=== PATIENT | male | born 1965 | race Caucasian/White ===

== ENCOUNTER 2017-07-17 10:26 | Emergency (ER) | payer MEDICAID, OTHER, SELFPAY ==
[2017-07-17] MEDS ORDERED: diphenhydrAMINE 50 MG/ML SDV ONE (10:31)
[2017-07-17] MEDS ORDERED: Haloperidol Lactate 5 MG/ML SDV ONE (10:32)
[2017-07-17] MEDS ORDERED: Sodium Chloride 0.9% 10 ML Syringe FLUSH PRN (10:40)
[2017-07-17] MEDS ORDERED: diphenhydrAMINE 50 MG/ML SDV IVPUSH ONE (10:41)
[2017-07-17] MEDS ORDERED: LORazepam 2 MG/ML Syringe IVPUSH ONE (10:41)
[2017-07-17] MEDS ORDERED: MVI, Adult with Vitamin K 10 ML, Folic Acid 1 MG, Thiamine 100 MG in Lactated Ringers 1... IV ONE ×4 (10:41)
[2017-07-17] MEDS ORDERED: Haloperidol Lactate 5 MG/ML SDV IVPUSH ONE (10:42)
[2017-07-17 11:27] LABS: ANION GAP 28.8; CHLORIDE,CL 97 mmol/L (101-111); SODIUM,NA 132 mmol/L (135-145)
--- NOTE | 2017-07-17 12:46 | EDM.PDOC ---
ED HPI GENERAL MEDICAL PROBLEM - General Chief Complaint: Drug or Alcohol Abuse Stated Complaint: IN BY [facility] Time Seen by Provider: 07/17/17 10:45 Source of Information: Reports: Patient, RN, RN Notes Reviewed History Limitations: Reports: No Limitations - History of Present Illness INITIAL COMMENTS - FREE TEXT/NARRATIVE: Patient presents to ER per [facility]. Upon arrival patient was seizing. Seizure lasted for approximately 30 seconds. EMS report the patient became combative in the ambulance. Ambulance pulled over and called for police help. Ambulance arrived with police accompanying . After seizure patient became very combative and uncooperative. Onset: Today Quality: Reports: Other (seizures) Severity: Moderate Improves with: Reports: None Worsens with: Reports: None Associated Symptoms: Reports: No Other Symptoms - Related Data Allergies Allergy/AdvReac Type Severity Reaction Status Date / Time No Known Allergies Allergy Verified 04/09/15 21:11 Home Meds: Home Meds Atenolol 100 mg PO DAILY 07/17/17 [History] Omeprazole [priLOSEC OTC] 20 mg PO DAILY 07/17/17 [History] Past Medical History - Past Health History Medical/Surgical History: Denies Medical/Surgical History HEENT History: Reports: Impaired Vision Psychiatric History: Reports: Addiction, Panic Attack Social & Family History - Tobacco Use Smoking Status *Q: Current Every Day Smoker Years of Tobacco use: 30 Packs/Tins Daily: 1.5 Used Tobacco, but Quit: No Second Hand Smoke Exposure: Yes - Caffeine Use Caffeine Use: Reports: Coffee, Soda, Tea - Alcohol Use Days Per Week of Alcohol Use: 7 Number of Drinks Per Day: 10 Total Drinks Per Week: 70 - Recreational Drug Use Recreational Drug Use: No ED ROS GENERAL - Review of Systems Review Of Systems: Unable To Obtain (EMS report seizure.) - Physical Exam Exam: See Below Exam Limited By: Other (seizure) Eye Exam: Bilateral Eye: Normal Inspection Ears: Normal External Exam, Normal Canal, Hearing Grossly Normal, Normal TMs Nose: Normal Inspection, Normal Mucosa, No Blood Throat/Mouth: Normal Inspection, Normal Lips, Normal Teeth, Normal Gums, Normal Oropharynx, Normal Voice, No Airway Compromise Head Exam: Atraumatic, Normocephalic Neck: Normal Inspection, Supple, Non-Tender, Full Range of Motion Cardiovascular: Regular Rate, Rhythm GI/Abdominal: Normal Bowel Sounds, Soft, Non-Tender, No Organomegaly, No Distention, No Abnormal Bruit, No Mass (Male) Exam: Deferred Rectal (Males) Exam: Deferred Neuro Exam (Abbreviated): Other (post ictal medicated--sedated.) Back Exam: Normal Inspection, Full Range of Motion, NT Extremities: Normal Inspection, Normal Range of Motion, Non-Tender, No Pedal Edema, Normal Capillary Refill Psychiatric: Other (combative, uncooperative until sedated.) Skin Exam: Warm, Dry, Intact, Normal Color, No Rash Course - Vital Signs Last Recorded V/S: Last Vital Signs Temp 97.6 F 07/17/17 13:01 Pulse 79 07/17/17 15:31 Resp 16 07/17/17 15:31 BP 82/48 L 07/17/17 15:31 Pulse Ox 95 07/17/17 15:31 - Orders/Labs/Meds Labs: Laboratory Tests 07/17/17 07/17/17 07/17/17 Range/Units 10:40 10:40 10:40 WBC 12.8 H (5.0-10.0) 10^3/uL RBC 4.79 (4.6-6.2) 10^6/uL Hgb 15.5 (14.0-18.0) g/dL Hct 46.4 (40.0-54.0) % MCV 96.9 D (80-100) fL MCH 32.4 (27.0-34.0) pg MCHC 33.4 (33.0-35.0) g/dL Plt Count 192 (150-450) 10^3/uL Neut % (Auto) 67.7 (42.2-75.2) % Lymph % (Auto) 24.9 (20.5-50.1) % [place] % (Auto) 6.3 (2-8) % Eos % (Auto) 0.5 L (1.0-3.0) % Baso % (Auto) 0.6 (0.0-1.0) % Sodium 132 L (135-145) mmol/L Potassium 3.8 (3.6-5.0) mmol/L Chloride 97 L (101-111) mmol/L Carbon Dioxide 10.0 L (21.0-31.0) mmol/L Anion Gap 28.8 BUN 18 (7-18) mg/dL Creatinine 1.2 (0.6-1.3) mg/dL Est Cr Clr Drug Dosing 75.20 mL/min Estimated GFR (MDRD) > 60 BUN/Creatinine Ratio 15.00 Glucose 194 H (74-105) mg/dL POC Glucose (70-105) mg/dl Lactic Acid 14.2 H (0.5-2.2) mmol/L Calcium 9.3 (8.4-10.2) mg/dl Total Bilirubin 0.9 (0.2-1.0) mg/dL AST 98 H (10-42) IU/L ALT 60 (10-60) IU/L Alkaline Phosphatase 60 (42-121) IU/L Total Protein 8.5 H (6.7-8.2) g/dl Albumin 4.5 (3.2-5.5) g/dl Globulin 4.0 Albumin/Globulin Ratio 1.13 Urine Color (YELLOW) Urine Appearance (CLEAR) Urine pH (5.0-9.0) Ur Specific [place] (1.005-1.030) Urine Protein (NEGATIVE) Urine Glucose (UA) (NEGATIVE) Urine Ketones (NEGATIVE) Urine Occult Blood (NEGATIVE) Urine Nitrite (NEGATIVE) Urine Bilirubin (NEGATIVE) Urine Urobilinogen (0.2-1.0) mg/dL Ur Leukocyte Esterase (NEGATIVE) Urine RBC /HPF Urine WBC (0-5/HPF) /HPF Ur Epithelial Cells /HPF Amorphous Sediment (0/HPF) /HPF Urine Bacteria (0-FEW/HPF) /HPF Hyaline Casts /LPF Urine Mucus /LPF Urine Opiates Screen (NEGATIVE) Ur Oxycodone Screen (NEGATIVE) Urine Methadone Screen (NEGATIVE) Ur Barbiturates Screen (NEGATIVE) U Tricyclic Antidepress (NEGATIVE) Ur Phencyclidine Scrn (NEGATIVE) Ur Amphetamine Screen (NEGATIVE) U Methamphetamines Scrn (NEGATIVE) Urine MDMA Screen (NEGATIVE) U Benzodiazepines Scrn (NEGATIVE) Urine Cocaine Screen (NEGATIVE) U Marijuana (THC) Screen (NEGATIVE) Ethyl Alcohol 7 mg/dL 07/17/17 07/17/17 07/17/17 Range/Units 12:32 12:32 14:38 WBC (5.0-10.0) 10^3/uL RBC (4.6-6.2) 10^6/uL Hgb (14.0-18.0) g/dL Hct (40.0-54.0) % MCV (80-100) fL MCH (27.0-34.0) pg MCHC (33.0-35.0) g/dL Plt Count (150-450) 10^3/uL Neut % (Auto) (42.2-75.2) % Lymph % (Auto) (20.5-50.1) % [place] % (Auto) (2-8) % Eos % (Auto) (1.0-3.0) % Baso % (Auto) (0.0-1.0) % Sodium (135-145) mmol/L Potassium (3.6-5.0) mmol/L Chloride (101-111) mmol/L Carbon Dioxide (21.0-31.0) mmol/L Anion Gap BUN (7-18) mg/dL Creatinine (0.6-1.3) mg/dL Est Cr Clr Drug Dosing mL/min Estimated GFR (MDRD) BUN/Creatinine Ratio Glucose (74-105) mg/dL POC Glucose 82 (70-105) mg/dl Lactic Acid (0.5-2.2) mmol/L Calcium (8.4-10.2) mg/dl Total Bilirubin (0.2-1.0) mg/dL AST (10-42) IU/L ALT (10-60) IU/L Alkaline Phosphatase (42-121) IU/L Total Protein (6.7-8.2) g/dl Albumin (3.2-5.5) g/dl Globulin Albumin/Globulin Ratio Urine Color Gina (YELLOW) Urine Appearance Clear (CLEAR) Urine pH 5.5 (5.0-9.0) Ur Specific [place] >= 1.030 (1.005-1.030) Urine Protein 100 H (NEGATIVE) Urine Glucose (UA) Negative (NEGATIVE) Urine Ketones 15 H (NEGATIVE) Urine Occult Blood Negative (NEGATIVE) Urine Nitrite Negative (NEGATIVE) Urine Bilirubin Negative (NEGATIVE) Urine Urobilinogen 0.2 (0.2-1.0) mg/dL Ur Leukocyte Esterase Negative (NEGATIVE) Urine RBC Not seen /HPF Urine WBC 0-5 (0-5/HPF) /HPF Ur Epithelial Cells Rare /HPF Amorphous Sediment Few (0/HPF) /HPF Urine Bacteria Rare (0-FEW/HPF) /HPF Hyaline Casts Few H /LPF Urine Mucus Moderate H /LPF Urine Opiates Screen Negative (NEGATIVE) Ur Oxycodone Screen Negative (NEGATIVE) Urine Methadone Screen Negative (NEGATIVE) Ur Barbiturates Screen Negative (NEGATIVE) U Tricyclic Antidepress Negative (NEGATIVE) Ur Phencyclidine Scrn Negative (NEGATIVE) Ur Amphetamine Screen Negative (NEGATIVE) U Methamphetamines Scrn Negative (NEGATIVE) Urine MDMA Screen Negative (NEGATIVE) U Benzodiazepines Scrn Positive H (NEGATIVE) Urine Cocaine Screen Negative (NEGATIVE) U Marijuana (THC) Screen Negative (NEGATIVE) Ethyl Alcohol mg/dL Meds: Medications Discontinued Medications Generic Name Dose Route Start Last Admin Trade Name Freq PRN Reason Stop Dose Admin Diphenhydramine HCl Confirm 07/17/17 10:31 07/17/17 10:54 Benadryl Administered 07/17/17 10:32 Not Given Dose 50 mg .ROUTE .STK-MED ONE Diphenhydramine HCl 50 mg 07/17/17 10:41 07/17/17 10:35 Benadryl IVPUSH 07/17/17 10:42 50 mg ONETIME ONE Administration Haloperidol Lactate Confirm 07/17/17 10:32 07/17/17 10:55 Haldol Administered 07/17/17 10:33 Not Given Dose 5 mg .ROUTE .STK-MED ONE Haloperidol Lactate 5 mg 07/17/17 10:42 07/17/17 10:35 Haldol IVPUSH 07/17/17 10:43 5 mg ONETIME ONE Administration Multivitamins/Minerals 10 ml/ 1,011.2 mls @ 999 mls/hr 07/17/17 10:41 11:12 Folic Acid 1 mg/ Thiamine HCl IV 07/17/17 11:41 999 mls/hr 100 mg/ Lactated Ringer's ONETIME ONE Administration Lorazepam 2 mg 07/17/17 10:41 07/17/17 10:35 Ativan IVPUSH 07/17/17 10:42 2 mg ONETIME ONE Administration Lorazepam 2 mg 07/17/17 16:19 07/17/17 16:24 Ativan IM 07/17/17 16:20 2 mg ONETIME ONE Administration Lorazepam Confirm 07/17/17 16:20 07/17/17 16:24 Ativan Administered 07/17/17 16:21 Not Given Dose 2 mg .ROUTE .STK-MED ONE Sodium Chloride 10 ml 07/17/17 10:40 07/17/17 11:14 Saline Flush FLUSH 10 ml ASDIRECTED PRN Administration Keep Vein Open - Radiology Interpretation Free Text/Narrative:: CT had: 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 Age appropriate supratentorial and infratentorial atrophy. Mild chronic white matter microvascular ischemic disease. No definite acute intracranial abnormality identified. see Rad report. Departure - Departure Time of Disposition: 16:27 Disposition: DC/Tfer to Psych Hosp/Unit 65 Clinical Impression: Alcohol abuse Alcohol withdrawal syndrome Qualifiers: Complication of substance-induced condition: with delirium Qualified Code(s): F10.231 - Alcohol dependence with withdrawal delirium - Discharge Information Referrals: Levy Bui MD [Primary Care Provider] - Forms: ED Department Discharge, Interfacility Transfer EMTALA
[2017-07-17 15:32] VITALS: BP 82/48
[2017-07-17] MEDS ORDERED: LORazepam 2 MG/ML Syringe IM ONE (16:19)
[2017-07-17] MEDS ORDERED: LORazepam 2 MG/ML Syringe ONE (16:20)
== END 2017-07-17 16:25 ==
LOC: DL.ED 10:26
DX: F10.231 Alcohol dependence with withdrawal delirium (principal); F17.210 Nicotine dependence, cigarettes, uncomplicated; Z79.899 Other long term (current) drug therapy; Y90.0 Blood alcohol level of less than 20 mg/100 ml
CPT/HCPCS: 36415; 70450; 80053; 80305; 81001; 82962; 83605; 85025; 96361; 96372; 96374; 96375; 99285; G0480; J1200; J2060; J3411; J7050; J7120; 99284; J1630; J3490

== ENCOUNTER 2024-03-26 02:08 | Observation (INO) | payer SELFPAY ==
[2024-03-26 02:30] LABS: BASOPHILS PERCENT AUTO 0.5 % (0.0-1.0); EOSINOPHILS PERCENT AUTO 1.2 % (1.0-3.0); HEMATOCRIT 49.4 % (40.0-54.0); HEMOGLOBIN 16.9 g/dL (14.0-18.0); LYMPHOCYTES PERCENT AUTO 21.7 % (20.5-50.1); MEAN CORPUSCULAR HEMOGLOBIN 29.9 pg (27.0-34.0); MEAN CORPUSCULAR HGB CONC 34.2 g/dL (33.0-35.0); MEAN CORPUSCULAR VOLUME 87.4 fL (80-100); NEUTROPHILS PERCENT AUTO 70.6 % (42.2-75.2); PLATELET COUNT,PLT 184 10^3/uL (150-450); RED BLOOD CELL COUNT 5.65 10^6/uL (4.6-6.2); WHITE BLOOD CELL COUNT,WBC 9.7 10^3/uL (5.0-10.0)
[2024-03-26 02:41] LABS: APPEARANCE,URINE CLEAR (CLEAR); BILIRUBIN,URINE NEGATIVE (NEGATIVE); COLOR,URINE YELLOW (YELLOW); GLUCOSE,URINE NEGATIVE (NEGATIVE); KETONES,URINE NEGATIVE (NEGATIVE); LEUKOCYTE ESTERASE,URINE NEGATIVE (NEGATIVE); NITRITE,URINE NEGATIVE (NEGATIVE); OCCULT BLOOD,URINE SMALL (NEGATIVE); PROTEIN,URINE 30 (NEGATIVE)
[2024-03-26] MEDS: Labetalol 20 MG/4 ML Syringe IVPUSH ONE (02:41)
[2024-03-26 02:43] LABS: AMPHETAMINES,URINE NEGATIVE (NEGATIVE); BARBITURATES,URINE NEGATIVE (NEGATIVE); BENZODIAZEPINE,URINE NEGATIVE (NEGATIVE); MDMA (ECSTASY), URINE NEGATIVE (NEGATIVE); METHADONE,URINE NEGATIVE (NEGATIVE); METHAMPHETAMINES,URINE NEGATIVE (NEGATIVE); OPIATES,URINE NEGATIVE (NEGATIVE); OXYCODONE,URINE NEGATIVE (NEGATIVE); PHENCYCLIDINE,URINE NEGATIVE (NEGATIVE); TCA,URINE NEGATIVE (NEGATIVE)
[2024-03-26] MEDS: Sodium Chloride 0.9% 1,000 ML IV ONE (02:45)
[2024-03-26 02:49] LABS: A/G RATIO 0.9; ALANINE AMINOTRANSFERASE,ALT 8 U/L (16-63); ALKALINE PHOSPHATASE 85 U/L (46-116); ANION GAP 14.5 mEq/L (7-13); ASPARTATE AMNIOTRANSFERASE,AST 8 U/L (15-37); BILIRUBIN TOTAL 0.5 mg/dL (0.2-1.0); BLOOD UREA NITROGEN,BUN 15 mg/dL (7-18); BUN/CREATININE RATIO 12.3 (No establ ref range); CALCIUM 9.6 mg/dL (8.5-10.1); CARBON DIOXIDE,CO2 29 mmol/L (21-32); CHLORIDE,CL 98 mmol/L (98-107); CREATININE 1.22 mg/dL (0.70-1.30); GLUCOSE RANDOM 125 mg/dL (70-99); LIPASE 81 U/L (16-77); MAGNESIUM 1.8 mg/dL (1.8-2.4); POTASSIUM,K 3.5 mmol/L (3.5-5.1); PROTEIN TOTAL,TP 8.6 g/dL (6.4-8.2); SODIUM,NA 138 mmol/L (136-145)
[2024-03-26 02:51] LABS: BACTERIA,URINE RARE /HPF (0-FEW/HPF); EPITHELIAL CELLS,URINE RARE /HPF (NOT SEEN)
[2024-03-26 02:52] LABS: WBC,URINE NOT SEEN /HPF (0-5/HPF)
[2024-03-26 02:54] LABS: ESTIMATED GFR 69 mL/min (>=60); ETHANOL BLOOD MEDICAL < 3 mg/dL (0)
[2024-03-26 03:09] LABS: LACTIC ACID < 0.3 mmol/L (0.4-2.0)
[2024-03-26] MEDS: Iopamidol 612 MG/ML 100 ML Bottle IVPUSH ONE (03:28)
[2024-03-26] MEDS: hydrALAZINE 20 MG/ML SDV IVPUSH ONE ×2 (03:33→04:00)
[2024-03-26] MEDS ORDERED: Docusate Sodium 100 MG Cap PO PRN (05:48)
[2024-03-26] MEDS ORDERED: Melatonin 3 MG Tab PO PRN (05:48)
[2024-03-26] MEDS ORDERED: Ondansetron 4 MG/2 ML SDV IVPUSH PRN (05:48)
[2024-03-26] MEDS ORDERED: Acetaminophen 325 MG Tab PO PRN (05:48)
[2024-03-26] MEDS ORDERED: Acetaminophen/HYDROcodone 325-5 MG Tab PO PRN (05:48)
[2024-03-26] MEDS ORDERED: Bisacodyl 5 MG Tab PO PRN (05:48)
[2024-03-26] MEDS: amLODIPine 5 MG Tab PO SCH ×2 (06:05→09:17)
[2024-03-26] MEDS: Atenolol 50 MG Tab PO SCH ×2 (06:05→09:17)
[2024-03-26] MEDS: Nicotine 21 MG/24 Hr Patch TRDERM SCH (08:00)
[2024-03-26 11:56] VITALS: BP 132/88; PULSE 61
== END 2024-03-26 12:30 | disposition home or self-care (01) ==
LOC: DL.ED 02:08 → DL.MS 04:53
PROVIDERS: ADMIT Internal Medicine; ATTEND Internal Medicine
DX: I16.0 Hypertensive urgency (principal); R10.11 Right upper quadrant pain; E86.0 Dehydration; F17.200 Nicotine dependence, unspecified, uncomplicated; Z79.899 Other long term (current) drug therapy
CPT/HCPCS: 36415; 71045; 74177; 76705; 80053; 80305-QW; 80307; 81001; 83605; 83690; 83735; 84484; 85025; 93005; 96361; 96374; 96375; 99285-25; A9270-GY; G0378; J0360; J1920; J7030; Q9967